=== PATIENT | male | born 2000 | race Caucasian/White ===

== ENCOUNTER 2023-12-01 16:57 | Emergency (ER) | payer BC ==
[~2023-12-01] VITALS: Ht 180.3 cm; Wt 70.0 kg
[2023-12-01] MEDS ORDERED: AMPH10TA PO (17:06)
[2023-12-01 17:08] VITALS: BP 120/100; PULSE 61; RESP 16; TEMP 98; O2SAT 98
== END 2023-12-01 17:16 | disposition home or self-care (01) ==
LOC: EEVIPCON 16:57 → ER 16:57
DX: R51.9 Headache, unspecified (principal)